=== PATIENT | male | born 1940 | race Caucasian/White ===

== ENCOUNTER 2023-07-28 12:12 | Emergency (ER) | payer MEDICARE, SELFPAY ==
[2023-07-28] VITALS (11 sets, daily range): BP systolic 120–165; BP diastolic 70–87; PULSE 58–63; TEMP 36.5; O2SAT 95–98; BMI 21.4
--- NOTE | 2023-07-28 13:05 | CT_ITS ---
The [address] [address] Patient Name: BILLY MONTESINOS MRN: [id number] date: 1940 Sex: M Assigned Patient Location: ER Current Patient Location: ER Accession/Order Number: [id number] Exam Date: 07/28/2023 14:00 Report Date: 07/28/2023 14:23 At the request of: HOANG ARNOLD Procedure: CT head/brain wo con EXAM: CT head/brain wo con HISTORY: [place] headache COMPARISON: None. TECHNIQUE: Axial soft tissue and bone windows through the calvarium with coronal and sagittal reformats. CT dose reduction technique was used including Automated Exposure Control. Findings: The paranasal sinuses and mastoid air cells are well aerated. No air-fluid levels. No extra-axial fluid collection. No intra-axial or extra-axial bleed. No mass effect or midline shift. Old bilateral basal ganglia lacunar infarcts. The remainder of the webb-white matter differentiation is preserved. There are white matter low attenuation lesions which are nonspecific but commonly attributed to chronic small vessel ischemic disease. The brain parenchymal volume is reduced and there is ex vacuo dilatation of the ventricles. The basal cisterns are patent. The craniovertebral junction is unremarkable. CT/CT head/brain wo con IMPRESSION: 1. No acute intracranial abnormality. 2. Senescent changes. Electronically authenticated by: ALISIA DOMINGUEZ Date: 07/28/2023 14:23
--- NOTE | 2023-07-28 13:12 | ED.GENADUL1 ---
HPI HPI - General Adult General Chief complaint: Headache Stated complaint: HEADACHE Time Seen by Provider: 07/28/23 13:02 Source: patient Mode of arrival: walk-in Limitations: no limitations History of Present Illness HPI narrative: 82 year old male presents to the ED for a frontal headache. Onset was one week ago. Denies fever, chills, vision changes, dizziness. Denies congestion, rhinorrhea, ear pain, sore throat. Denies neck pain/stiffness. Denies N/V. Rates his pain 8/10. He has been taking Motrin and Tylenol without relief. He is a smoker. He is accompanied by family. Related Data Home Medications ?Medication ?Instructions ?Recorded ?Confirmed aspirin 81 mg tablet,delayed 81 mg PO DAILY 07/28/23 07/28/23 release fluticasone propionate 115 2 inh inhalation BID 07/28/23 07/28/23 mcg-salmeterol 21 mcg/actuation HFA inhaler (Advair HFA) metoprolol tartrate 25 mg tablet 25 mg PO DAILY 07/28/23 07/28/23 nitroglycerin 0.4 mg sublingual 0.4 mg sublingual PRN CHEST PAIN 07/28/23 07/28/23 tablet pravastatin 40 mg tablet 40 mg PO DAILY 07/28/23 07/28/23 valsartan 160 mg tablet 160 mg PO DAILY 07/28/23 07/28/23 Previous Rx's ?Medication ?Instructions ?Recorded medvnudjkr-qaswalyiydusp-cqvikvwx 1 cap PO TID PRN pain 2 days #6 07/28/23 50 mg-300 mg-40 mg capsule caps (Fioricet) ondansetron HCl 4 mg tablet 4 mg PO Q8H 24 hours #6 tabs 07/28/23 Allergies Allergy/AdvReac Type Severity Reaction Status Date / Time No Known Drug Allergies Allergy Verified 07/28/23 12:44 Opioid HPI Opioid Management Most Recent Opioid Data: No Data to Display Review of Systems ROS Constitutional Denies: fever or chills Eyes Reports: light sensitivity; Denies: change in vision or blurry vision Ears, nose, mouth, and throat Denies: throat pain or neck pain Cardiovascular Denies: chest pain Respiratory Denies: shortness of breath Gastrointestinal Denies: abdominal pain, nausea or vomiting Musculoskeletal Denies: neck pain Neurological Reports: headache; Denies: numbness in extremities, weakness in extremities, lack of coordination, dizziness, confusion, slurred speech or difficulty communicating thoughts Exam Constitutional Vital Signs, click to edit/add: Last Vital Signs Temp 97.7 F 07/28/23 12:35 Pulse 58 L 07/28/23 15:50 Resp 18 07/28/23 15:50 BP 148/74 H 07/28/23 15:50 Pulse Ox 96 07/28/23 15:50 O2 Del Method Room Air 07/28/23 15:50 Common normals: no apparent distress and oriented x3 General appearance: cooperative HENMT Common normals: head/scalp atraumatic Face and sinus: normal facial exam Eye Common normals: PERRL, EOMs intact bilaterally, conjunctivae normal and no scleral icterus Neck & C-Spine Common normals: supple and no meningeal signs Chest Chest: symmetrical chest wall rise Respiratory Common normals: normal respiratory effort and no use of accessory muscles Effort & inspection: able to speak in complete sentences Cardio Rate: regular rate Neuro Common normals: oriented x3, CN's II-XII intact bilaterally and moves all extremities Sensorium/orientation: awake and alert Speech: speech normal Gait (neuro): normal gait Motor exam: strength 5/5 throughout Course Vital Signs Vital signs: Vital Signs Temperature 97.7 F 07/28/23 12:35 Pulse Rate 63 07/28/23 12:35 Respiratory Rate 18 07/28/23 12:35 Blood Pressure 165/87 H 07/28/23 12:35 Pulse Oximetry 98 07/28/23 12:35 Oxygen Delivery Method Room Air 07/28/23 12:35 Temperature 97.7 F 07/28/23 12:35 Pulse Rate 58 L 07/28/23 15:50 Respiratory Rate 18 07/28/23 15:50 Blood Pressure 148/74 H 07/28/23 15:50 Pulse Oximetry 96 07/28/23 15:50 Oxygen Delivery Method Room Air 07/28/23 15:50 Medical Decision Making MDM Narrative Medical decision making narrative: CT scan showed no acute findings. He was given IV fluids and medication with improvement in his discomfort. Prescriptions were provided for Zofran and Fioricet. Follow up with pcp for a recheck, further evaluation and treatment. Medical Records Medical records reviewed: Yes I reviewed the patient's medical records Imaging Data CT scan - head: Attestation: I have reviewed the pertinent imaging results. Radiologist's impression: ITS Impressions Head CT 07/28/23 13:05 IMPRESSION: 1. No acute intracranial abnormality. 2. Senescent changes. Electronically authenticated by: ALISIA DOMINGUEZ Date: 07/28/2023 14:23 Discharge Plan Discharge Stand Alone Forms: Portal Instructions Chief Complaint: Headache Clinical Impression: Headache Patient Disposition: Home, Self-Care Time of Disposition Decision: 15:10 Condition: Good Mode of Transportation: Private Vehicle Prescriptions / Home Meds: New ondansetron HCl 4 mg tablet 4 mg PO Q8H 1 Days Qty: 6 0RF dbduuvssxe-ytnkjeuteefwz-mutv [Fioricet] 50-300-40 mg capsule 1 cap PO TID PRN (Reason: pain) 2 Days Qty: 6 0RF No Action fluticasone propion-salmeterol [Advair HFA] 115-21 mcg/actuation HFA aerosol inhaler 2 inh inhalation BID metoprolol tartrate 25 mg tablet 25 mg PO DAILY pravastatin 40 mg tablet 40 mg PO DAILY valsartan 160 mg tablet 160 mg PO DAILY nitroglycerin 0.4 mg tablet, sublingual 0.4 mg sublingual PRN Rx Instructions: do not exceed 3 doses per episode aspirin 81 mg tablet,delayed release (DR/EC) 81 mg PO DAILY Print Language: Vietnamese Instructions: Acute Headache (ED) Additional Instructions: Return to the ER for new or worsening symptoms. Referrals: BRIT GLORIA [Primary Care Provider] - 1 week Discharge Date/Time: 07/28/23 15:55
[2023-07-28] MEDS: 0.9 % SODIUM CHLORIDE 1,000 ML 500 ML IV (13:28)
[2023-07-28] MEDS: DEXAMETHASONE SOD PHOS 10 MG/ML VIAL IV (13:29)
[2023-07-28] MEDS: DIPHENHYDRAMINE HCL 50 MG/ML (1ML) VIAL 12.5 MG IV (13:29)
[2023-07-28] MEDS: METOCLOPRAMIDE HCL 10 MG/2 ML VIAL IVP (13:30)
[2023-07-28] MEDS: ONDANSETRON PF 4 MG/2 ML VIAL IV (15:32)
[2023-07-28] MEDS: BUTALB/ACETAMINOPHEN/CAFFEINE 50-325-40MG TABLET 1 TAB PO (15:32)
== END 2023-07-28 15:55 | disposition home or self-care (01) ==
PROVIDERS: Emergency Provider Emergency Medicine; PCP Family Medicine
DX: R51.9 Headache, unspecified (principal); F17.210 Nicotine dependence, cigarettes, uncomplicated; Z79.82 Long term (current) use of aspirin; Z79.899 Other long term (current) drug therapy
CPT/HCPCS: 70450; 96374; 96375; 99285; J1100